=== PATIENT | male | born 1995 | race Caucasian/White ===

== ENCOUNTER 2021-12-19 19:11 | Observation (INO) | payer BC, SELFPAY ==
[2021-12-19] VITALS (22 sets, daily range): BP systolic 110–127; BP diastolic 71–93; PULSE 78–94; RESP 12–25; TEMP 37.1–37.3; O2SAT 97–100
--- NOTE | ~2021-12-19 | CT_ITS ---
EXAMINATION: CT abdomen pelvis w con DATE: 12/19/2021 20:44 INDICATION: RLQ pain TECHNIQUE: Computed tomography (CT) of the abdomen and pelvis was performed with 100 mL Omnipaque-350 intravenous contrast. Automated exposure control and iterative reconstruction technique were employe d. The dose-length product was 288.66 mGy-cm. COMPARISON: None. FINDINGS: Lower thorax: Unremarkable Liver: Normal. Biliary/Gallbladder: Gallbladder is normal. No bile duct dilation. Pancreas: No mass or duct dilation. Spleen: Normal. Adrenals:No mass. Kidneys: No mass or stone. Mild proximal right ureterectasis and hyperemia likely related to the appe ndiceal process. GI tract: No small or large bowel dilation. Dilated appendix with surrounding inflammatory change and hyperemic mucosa. Appendicolith at the neck of the appendix. Mesentery/Peritoneum: No ascites, mass, or free air. Retroperitoneum: No mass. Pelvis: Pelvic organs are within normal limits. Small volume free pelvic fluid, presumed to be reacti ve edema. Soft Tissues: Soft tissues and body wall unremarkable. Bones: No acute osseous finding. IMPRESSION: Acute uncomplicated appendicitis. Reviewed, dictated and finalized at location K.
--- NOTE | 2021-12-19 19:44 | ED.GENADULT ---
HPI - General Adult General Chief complaint: Abdominal Pain Stated complaint: RLQ pain Time Seen by Provider: 12/19/21 19:37 History of Present Illness HPI narrative: 26-year-old male presenting the emergency department for evaluation of right lower quadrant abdominal pain. Patient states the pain did start yesterday and was more central and generalized. Patient states that the pain does feel improved but does feel more focal in his right lower quadrant today. Patient denies any current nausea or vomiting. Patient has no prior surgical history. Related Data Allergies Allergy/AdvReac Type Severity Reaction Status Date / Time No Known Allergies Allergy Mild Verified 12/19/21 19:43 Review of Systems Review of Systems: CONSTITUTIONAL: Denies fever, chills, or sweats. EYES: Denies visual changes, redness, or discharge. ENT: Denies rhinorrhea, congestion, sore throat, or otalgia. CARDIOVASCULAR: Denies chest pain, palpitations, or edema. RESPIRATORY: Denies cough or dyspnea. GASTROINTESTINAL: See HPI GENITOURINARY: Denies dysuria or hematuria. SKIN: Denies rash or itching. MUSCULOSKELETAL: Denies back pain, joint pain, or myalgia. NEUROLOGIC: Denies headache, numbness, or weakness. Exam Narrative: APPEARANCE: Well appearing, no pain, no distress, well-nourished. HEAD: normocephalic, atraumatic. EYES: PERRLA/EOMI, conjunctivae clear. NOSE: Normal no drainage NECK: Supple. No adenopathy, no masses. RESPIRATORY: Airway patent, respirations nonlabored. Clear to auscultation bilaterally, no rales, rhonchi, wheezing. CARDIOVASCULAR: Regular rate and rhythm without murmurs rubs or gallops. ABDOMINAL: Right lower quadrant tenderness to palpation with positive Rovsing sign MUSCULOSKELETAL: Moves all extremities. Strength/ROM intact, No edema, No calf tenderness. NEURO: Alert. Cranial nerves II through XII intact. Grossly intact SKIN: Warm, dry. Normal Color Course Course Emergency Course: Patient CT scan was positive for acute uncomplicated appendicitis. Case was discussed with Dr. Payne with surgery and patient was accepted for admission. Patient was started on Zosyn while in the emergency department. Patient was updated on the results of his work-up and plan for admission. All questions and concerns were addressed. Patient was well-appearing at time of admission. Vital Signs Vital signs: Vital Signs Temperature 98.8 F 12/19/21 19:16 Pulse Rate 91 12/19/21 19:16 Respiratory Rate 16 12/19/21 19:16 Blood Pressure 110/71 12/19/21 19:16 Pulse Oximetry 100 12/19/21 19:16 Oxygen Delivery Room Air 12/19/21 19:16 Temperature 98.8 F 12/19/21 19:16 Pulse Rate 92 12/19/21 22:02 Respiratory Rate 20 12/19/21 22:02 Blood Pressure 117/75 12/19/21 22:02 Pulse Oximetry 100 12/19/21 22:02 Oxygen Delivery Room Air 12/19/21 19:16 Medical Decision Making Vital Signs Vital Signs: Vital Signs Temperature 98.8 F 12/19/21 19:16 Pulse Rate 91 12/19/21 19:16 Respiratory Rate 16 12/19/21 19:16 Blood Pressure 110/71 12/19/21 19:16 Pulse Oximetry 100 12/19/21 19:16 Oxygen Delivery Room Air 12/19/21 19:16 Temperature 98.8 F 12/19/21 19:16 Pulse Rate 92 12/19/21 22:02 Respiratory Rate 20 12/19/21 22:02 Blood Pressure 117/75 12/19/21 22:02 Pulse Oximetry 100 12/19/21 22:02 Oxygen Delivery Room Air 12/19/21 19:16 Lab Data Lab results reviewed: Yes I reviewed the patient's lab results. Result diagrams: 12/19/21 19:31 12/19/21 19:31 Labs: Lab Results 12/19/21 12/19/21 12/19/21 Range/Units 19:31 19:31 19:31 WBC 12.5 H (4.5-10.0) K/mm3 RBC 4.50 L (4.6-6.20) M/mm3 Hgb 13.7 L (14.0-18.0) g/dL Hct 39.4 L (42.0-52.0) % MCV 87.6 (80-100) fl MCH 30.4 (26-34) pg MCHC 34.8 (32-36) g/dl RDW 12.3 (11.5-14.5) % Plt Count 193 (150-375) k/mm3 MPV 9.6 (7.4-10.4) fl Immature Gran
[2021-12-19 19:49] LABS: Basophils Percent Auto 0.2 % (0.2-1.2); Eosinophils Percent Auto 0.1 % (0-4.4); Hematocrit 39.4 % (42.0-52.0); Hemoglobin 13.7 g/dL (14.0-18.0); Immature Granulocyte Absolute 0.04 K/mm3 (0.00-0.031); Immature Granulocyte Percent A 0.3 % (0-0.5); Lymphocytes Absolute Auto 1.96 K/mm3 (0.9-3.2); Lymphocytes Percent Auto 15.7 % (18.3-44.2); Mean Corpuscular HGB Conc 34.8 g/dl (32-36); Mean Corpuscular Hemoglobin 30.4 pg (26-34); Mean Corpuscular Volume 87.6 fl (80-100); Mean Platelet Volume 9.6 fl (7.4-10.4); Monocytes Absolute Auto 0.8 K/mm3 (0.1-0.6); Monocytes Percent Auto 6.3 % (2.6-8.5); Neutrophils Absolute Auto 9.7 K/mm3 (1.3-6.7); Neutrophils Percent Auto 77.4 % (45.5-73.1); Platelet Count Result 193 k/mm3 (150-375); Red Cell Distribution Width 12.3 % (11.5-14.5); White Blood Count 12.5 K/mm3 (4.5-10.0)
[2021-12-19 19:51] LABS: Appearance Urine Clear (Clear); Bilirubin Urine 1+ (Negative); Blood Urine 2+ (Negative); Color Urine Yellow (Yellow); Glucose Urine UA Negative (Negative); Ketones Urine 3+ mg/dL (Negative); Leukocyte Esterase Ur Negative LEU/UL (Negative); Nitrate Urine Negative (Negative); Protein Urine Negative (Negative); Specific Grav Ur >= 1.030 (1.001-1.035); Urobilinogen Urine 0.2 mg/dL (<2.0); pH Urine 5.5 (5.0-9.0)
[2021-12-19] MEDS: SODIUM CHLORIDE 0.9% IV 1,000 ML 999 ML IV CONT ×2 (20:00→21:00)
[2021-12-19 20:01] LABS: Alanine Aminotransferase 18 U/L (6-50); Albumin Level 5.1 g/dL (3.5-5.1); Alkaline Phosphatase 51 U/L (38-126); Anion Gap 12 mmol/L (8-16); Aspartate Amino Transferase 27 U/L (17-59); Bilirubin,Total 0.7 mg/dL (0.2-1.3); Blood Urea Nitrogen 14 mg/dL (9-20); Calcium 9.8 mg/dL (8.4-10.2); Carbon Dioxide 30 mmol/L (22-30); Chloride 97 mmol/L (98-107); Estimated CRCL calculation 101 ml/min; Estimated Glomerular Filt Rate > 60; Glucose 109 mg/dL (65-110); Lipase 106 U/L (23-300); Potassium 3.4 mmol/L (3.4-5.0); Sodium 139 mmol/L (137-145)
[2021-12-19 20:06] LABS: Mucus Urine Heavy /lpf; Squamous Epithelial Cell Urine Rare /hpf (Few); WBC Urine 0-3 /hpf
[2021-12-19 20:18] LABS: Add Urine Microscopic? YES
[2021-12-19] MEDS: SODIUM CHLORIDE 0.9% IV 1,000 ML 125 ML IV CONT (22:29)
[2021-12-19] MEDS: HYDROmorphone HCL INJ (*CRX) 1 MG/ML SYR 0.5 MG IV PUSH (22:29)
--- NOTE | 2021-12-19 23:50 | ADMGEN ---
This patient, Nadeem Cueva, was admitted to Medical Room 251-01. Patient/family oriented to hospital policies and general routines including ID bracelet, bed and alarms, visiting hours, pain management, procedures, bathroom and other care routines, personal items, smoking policy, room service/diet, and visiting hours. Information on how to activate the Rapid Response Team has been discussed. Patient/Family are encouraged to report perceived risks to care and to ask questions if they do not understand what they are told or what they should do.
[2021-12-20] VITALS (15 sets, daily range): BP systolic 103–118; BP diastolic 59–79; PULSE 67–85; RESP 14–20; TEMP 36.2–36.7; O2SAT 98–100; BMI 22.6
[2021-12-20] MEDS: SODIUM CHLORIDE 0.9% IV 1,000 ML 125 ML IV CONT (06:30)
[2021-12-20 07:36] LABS: Basophils Percent Auto 0.2 % (0.2-1.2); Eosinophils Percent Auto 0.4 % (0-4.4); Hematocrit 34.7 % (42.0-52.0); Hemoglobin 11.9 g/dL (14.0-18.0); Immature Granulocyte Absolute 0.03 K/mm3 (0.00-0.031); Immature Granulocyte Percent A 0.3 % (0-0.5); Lymphocytes Absolute Auto 2.08 K/mm3 (0.9-3.2); Lymphocytes Percent Auto 20.8 % (18.3-44.2); Mean Corpuscular HGB Conc 34.3 g/dl (32-36); Mean Corpuscular Hemoglobin 30.4 pg (26-34); Mean Corpuscular Volume 88.7 fl (80-100); Mean Platelet Volume 10.2 fl (7.4-10.4); Monocytes Absolute Auto 0.7 K/mm3 (0.1-0.6); Monocytes Percent Auto 6.7 % (2.6-8.5); Neutrophils Absolute Auto 7.2 K/mm3 (1.3-6.7); Neutrophils Percent Auto 71.6 % (45.5-73.1); Platelet Count Result 172 k/mm3 (150-375); Red Blood Count 3.91 M/mm3 (4.6-6.20); Red Cell Distribution Width 12.5 % (11.5-14.5)
--- NOTE | 2021-12-20 09:09 | WPDHPUPDATE1 ---
History and Physical Update Update Date/Time: 12/20/21 09:09 History and Physical has been reviewed, including an updated exam of the patient. There are NO changes in the patient's condition. Risks, benefits, and alternatives have been discussed and questions answered. Patient agrees to proceed with procedure.
--- NOTE | 2021-12-20 09:10 | PM.IMHP ---
H&P: HPI History of Present Illness Date/Time: 12/20/21 09:10 <Rodney Payne MD - Last Filed: 12/20/21 09:13> Chief Complaint: Abdominal pain <Rodney Payne MD - Last Filed: 12/20/21 09:13> RLQ Abdominal pain <CHE Mattson - Last Filed: 12/20/21 10:33> Narrative: This is a 26-year-old man who presented to the ER last night with complaints of right lower quadrant abdominal pain. His abdominal pain started 2 days ago. He had associated nausea, but no vomiting. No fever or chills. His pain seemed to improve Monday, but was worse again through the night. He was unable to sleep due to the pain. Therefore, he presented to the ER for evaluation. CT scan of the abdomen and pelvis showed acute appendicitis with an appendicolith in the neck of the appendix. No evidence of perforation or abscess. [place] [id number]. Our service was contacted by the ED physician and he was admitted for acute appendicitis. He has been started on IV Zosyn, IV fluids, and made NPO. He is now seen on the medical floor with his mother at the bedside. He reports feeling comfortable this morning when at rest, but pain is aggravated by movement and coughing. He is currently complaining of a headache. He deals with migraines chronically and typically takes [id number] Excedrin to abort his migraines. No previous abdominal surgeries. No other complaints at this time. <CHE Mattson - Last Filed: 12/20/21 10:33> Review of Systems Review of Systems: All systems reviewed & are unremarkable except as noted in HPI and below <CHE Mattson - Last Filed: 12/20/21 10:33> Constitutional: Constitutional: Reports as per HPI, Denies chills, Denies fatigue, Denies fever(s) and Reports headache(s) <CHE Mattson - Last Filed: 12/20/21 10:33> Eyes: Eyes: Reports no additional eye complaints <CHE Mattson - Last Filed: 12/20/21 10:33> ENT: Reports system reviewed and no additional complaints, except as documented and Reports Normal hearing present <Trinh RobledoCHE jameson - Last Filed: 12/20/21 10:33> Cardiovascular: Cardiovascular: Reports no additional cardiovascular complaints, Denies chest pain and Denies leg edema <Trinh RobledoCHE jameson - Last Filed: 12/20/21 10:33> Respiratory: Respiratory: Reports no additional respiratory complaints, Denies cough and Denies dyspnea <Trinh BAnil MeenaCHE jameson - Last Filed: 12/20/21 10:33> Gastrointestinal: Gastrointestinal: Reports as per HPI, Reports no additional gastrointestinal complaints, Reports abdominal pain, Denies melena, Denies bloating, Denies change in bowel habits, Denies diarrhea, Reports nausea and Denies vomiting <Trinh ChelseaAnil MeenaCHE jameson - Last Filed: 12/20/21 10:33> Genitourinary: Genitourinary: Reports no additional male genitourinary complaints, Denies hematuria and Denies dysuria <Trinh Linton MeenaCHE jameson - Last Filed: 12/20/21 10:33> Musculoskeletal: Musculoskeletal: Reports no additional musculoskeletal complaints <Trinh Linton MeenaCHE jameson - Last Filed: 12/20/21 10:33> Integumentary/Breasts: Skin/Breast: Reports system reviewed and no additional complaints, except as docu <Trinh BAnil MeenaCHE jameson - Last Filed: 12/20/21 10:33> Neurologic: Reports system reviewed and no additional complaints, except as documented, Denies dizziness, Denies focal weakness, Denies numbness and Denies tingling <Trinh Linton MeenaCHE jameson - Last Filed: 12/20/21 10:33> PMF Past Medical History Medical History: Medical History No pertinent past medical history <Rodney Payne MD - Last Filed: 12/20/21 09:13> Surgical History Surgical History: Surgical History No pertinent past surgical history <Rodney Payne MD - Last Filed: 12/20/21 09:13> Family History Family History: Family History
[2021-12-20] MEDS: ACETAMINOPHEN 500 MG TABLET 1000 MG PO (10:50)
--- NOTE | 2021-12-20 12:07 | WPDANESEPPF ---
Anes - Initial Pre Proc Eval Procedure: Operation Date: 12/20/21 13:30 Proposed Procedures p Laparoscopic Appendectomy, Possible Open - Rodney Payne MD Date/Time: 12/20/21 12:07 Surgeon: Rodney Payne MD Pre Op Diagnosis: acute appendicitis Patient Data Age: 26 Gender: M Height: 1.8 m Weight: 73.6 kg Last Vital Signs Temp 36.7 C 12/20/21 07:05 Pulse 81 12/20/21 07:05 Resp 20 12/20/21 07:05 BP 104/61 12/20/21 07:05 Pulse Ox 98 12/20/21 08:48 O2 Del Method Room Air 12/20/21 08:48 Allergies Allergy/AdvReac Type Severity Reaction Status Date / Time No Known Allergies Allergy Mild Verified 12/19/21 23:55 Home Medications Medication Instructions Recorded Confirmed Type No Home Medications 12/19/21 12/19/21 History Laboratory Tests 12/19/21 12/19/21 12/19/21 19:31 19:31 19:31 WBC 12.5 K/mm3 H K/mm3 (4.5-10.0) RBC 4.50 M/mm3 L M/mm3 (4.6-6.20) Hgb 13.7 g/dL L g/dL (14.0-18.0) Hct 39.4 % L % (42.0-52.0) MCV 87.6 fl fl (80-100) MCH 30.4 pg pg (26-34) MCHC 34.8 g/dl g/dl (32-36) RDW 12.3 % % (11.5-14.5) Plt Count 193 k/mm3 k/mm3 (150-375) MPV 9.6 fl fl (7.4-10.4) Immature Gran % (Auto) 0.3 % % (0-0.5) Neut % (Auto) 77.4 % H % (45.5-73.1) Lymph % (Auto) 15.7 % L % (18.3-44.2) [place] % (Auto) 6.3 % % (2.6-8.5) Eos % (Auto) 0.1 % % (0-4.4) Baso % (Auto) 0.2 % % (0.2-1.2) Lymph # (Auto) 1.96 K/mm3 K/mm3 (0.9-3.2) [place] # (Auto) 0.8 K/mm3 H K/mm3 (0.1-0.6) Eos # (Auto) 0.0 K/mm3 K/mm3 (0-0.3) Baso # (Auto) 0.0 K/mm3 K/mm3 (0.0-0.1) Abs Immat Gran (auto) 0.04 K/mm3 H K/mm3 (0.00-0.031) Absolute Neuts (auto) 9.7 K/mm3 H K/mm3 (1.3-6.7) Absolute Nucleated RBC 0.0 K/mm3 K/mm3 (0.0-0.012) Nucleated RBC % 0.0 % % (0.0-0.2) Sodium 139 mmol/L mmol/L (137-145) Potassium 3.4 mmol/L mmol/L (3.4-5.0) Chloride 97 mmol/L L mmol/L (98-107) Carbon Dioxide 30 mmol/L mmol/L (22-30) Anion Gap 12 mmol/L mmol/L (8-16) BUN 14 mg/dL mg/dL (9-20) Creatinine 1.00 mg/dL mg/dL (0.7-1.3) Estim Creat Clear Calc 101 ml/min ml/min Estimated GFR > 60 (59 - ) Glucose 109 mg/dL mg/dL (65-110) Calcium 9.8 mg/dL mg/dL (8.4-10.2) Total Bilirubin 0.7 mg/dL mg/dL (0.2-1.3) AST 27 U/L U/L (17-59) ALT 18 U/L U/L (6-50) Alkaline Phosphatase 51 U/L U/L (38-126) Total Protein 8.0 g/dL g/dL (6.3-8.2) Albumin 5.1 g/dL g/dL (3.5-5.1) Lipase 106 U/L U/L (23-300) Urine Color Yellow (Yellow) Urine Appearance Clear (Clear) Urine pH 5.5 (5.0-9.0) Ur Specific [place] >= 1.030 (1.001-1.035) Urine Protein Negative mg/dL mg/dL (Negative) Urine Glucose (UA) Negative mg/dL mg/dL (Negative) Urine Ketones 3+ mg/dL H mg/dL (Negative) Ur Blood (Man) 2+ H (Negative) Urine Nitrate Negative (Negative) Urine Bilirubin 1+ H (Negative) Urine Urobilinogen 0.2 mg/dL mg/dL (<2.0) Leukocyte Esterase Rfl Negative KAMRON/UL KAMRON/UL (Negative) Urine RBC 6-10 /hpf H /hpf (0-2) Urine WBC 0-3 /hpf /hpf Ur Squamous Epith Cells Rare /hpf /hpf (Few) Urine Mucus Heavy /lpf H /lpf 12/20/21 05:06 WBC 10.0 K/mm3 K/mm3 (4.5-10.0) RBC 3.91 M/mm3 L M/mm3 (4.6-6.20) Hgb 11.9 g/dL L g/dL (14.0-18.0) Hct 34.7 % L % (42.0-52.0) MCV 88.7 fl fl (80-100) MCH 30.4 pg pg (26-34) MCHC 34.3 g/dl g/dl (32-36) RDW 12.5 % % (11.5-14.5)
[2021-12-20] MEDS: BUPIVACAINE/EPINEPHRINE 0.25% 50 ML VIAL 30 ML INFILTRATE (13:05)
[2021-12-20] MEDS: LACTATED RINGERS 1,000 ML 30 ML IV CONT (13:47)
--- NOTE | 2021-12-20 14:02 | W.PM.PROC2 ---
Procedure Note - Detailed Date of Procedure 12/20/21 Pre-op Diagnosis acute uncomplicated appendicitis Post-op Diagnosis Same Procedure Performed laparoscopic appendectomy Surgeon Rodney Payne MD [employer] Worker Eleanor ACUÑA. OR [facility] An[facility] General Indications Patient had a workup in the ED showing elevated white count, CT scan consistent with acute uncomplicated appendicitis with an appendicolith. Treatment with either antibiotics or surgery was explained to the patient. She air decision making was completed and patient would like to proceed with a laparoscopic appendectomy. Findings Inflamed enlarged appendix on its distal 2/3. Very small opening to perhaps a sealed tract suggestive of an early indirect inguinal hernia right side. Description of Procedure The patient was seen again in the Holding Room. The risks, benefits, complications, treatment options, and expected outcomes were discussed with the patient and/or family. The possibilities of reaction to medication, pulmonary aspiration, perforation of viscus, bleeding, recurrent infection, finding a normal appendix, the need for additional procedures, failure to diagnose a condition, and creating a complication requiring transfusion or operation were discussed. There was concurrence with the proposed plan and informed consent was obtained. The site of surgery was properly noted/marked. The patient was taken to Operating Room, and a time out was preformed which identified this as the proper patient, and the procedure verified as laparoscopic appendectomy, possible open. The patient was placed in the supine position and general anesthesia was induced, along with placement of an orogastric tube, SCD hose, and a Dash catheter. The abdomen was prepped and draped in a sterile fashion. A 5 mm transverse umbilical incision was made directly over the very small umbilical hernia that I had noted on exam. After injecting local anesthetic using at some forceps we carefully elevated the skin superiorly inferiorly after making a small less than 1 cm transverse incision directly over the hernia. Entered of what appeared to be a small hernia sac and some preperitoneal fat was excised from the area I probed with a hemostat and it appeared as if we were on possibly within the hernia sac. I therefore placed a hemostat on visible fascia superiorly and I placed 1 towel clip on the skin inferiorly. We then used the 5 mm port to carefully twist into the abdomen visualizing with the 0 degree 5 mm laparoscoped. CO2 gas was then connected to the port and the abdomen insufflated and we were definitely within the abdomen. Once the abdomen was insufflated to 15 mmHg pressure the pneumoperitoneum was then established to steady pressure of 14 mm Hg. A 12 mm laparoscopic port was placed through a transverse suprapubic incision. An additional 5 mm cannula was then placed in the left lower quadrant of the abdomen at a level half way between the umbilicus and pubic symphysis under direct vision. A careful evaluation of the entire abdomen was carried out. The patient was placed in Trendelenburg and left lateral decubitus position. The small intestines were retracted in the cephalad and left lateral direction away from the pelvis and right lower quadrant. The patient was found to have an enlarged and inflamed appendix that was extending into the right side of the pelvis at the level of the pelvic brim. There was no evidence of perforation. The appendix was carefully dissected. Once it was free a 45 mm ethicon endogastroentestinal stapler with a vascular load was placed across the mesoappendix. This was fired and hemostasis was checked along the staple line and appeared to be adequate. For this patient, this divided the entire mesoappendix and we were able to proceed immediately to stapling off the appendix at it's junction with the cecum. The appendix was then divided at its base using the same 45 mm stapler with
--- NOTE | 2021-12-20 17:08 | PM.DS ---
DS: Admitting Diagnosis Discharge Date 12/20/2021 Admitting Diagnosis acute uncomplicated appendicitis DS: Discharge Diagnosis Discharge Diagnosis (1) Acute appendicitis, uncomplicated: Code(s): K35.80 - Unspecified acute appendicitis Status: Acute Assessment and Plan: This was the main reason for the patient's admission. He was started on antibiotics and seen the morning following admission. Because he had an appendicolith by CT was recommended that he have surgical intervention rather than IV antibiotic and out of the attic course for treatment of his appendicitis. He did well through surgery and is discharged with no nausea following the surgery. He is tolerating liquids upon discharge. He will follow up in the office in 2 weeks. (2) Umbilical hernia without obstruction and without gangrene: Code(s): K42.9 - Umbilical hernia without obstruction or gangrene Status: Acute Assessment and Plan: this was repaired at the time of surgery. It was quite small in needed only 2 sutures. DS: Summary Hospital Course Reason for hospitalization: acute uncomplicated appendicitis Hospital Course: patient was admitted because of his appendicitis. He was started on IV antibiotics. Because he had an appendicolith by CT was recommended that he have surgical intervention rather than IV antibiotic and out of the attic course for treatment of his appendicitis. He did well through surgery and is discharged with no nausea following the surgery. He is tolerating liquids upon discharge. He will follow up in the office in 2 weeks. Status at Discharge Cognitive/behavioral status at discharge: Back to baseline Functional status at discharge: independent ambulation Time Spent with Patient Time attestation: Total time spent providing and/or coordinating discharge services: Time spent: Less than 30 minutes Exam Const: General: cooperative, comfortable, alert and awake Orientation/consciousness: patient oriented x3 HENMT: Head: normal to inspection Mouth: Yes moist mucous membranes Eyes: Sclera: sclerae normal Pupils: Equal, round and reactive pupils present Neck: Neck: normal visual inspection and no JVD Chest: Chest palpation & inspection: normal inspection of the chest Resp: Effort & Inspection: normal respiratory effort Auscultation: clear to auscultation bilaterally Cardio: Jugular venous distension: no JVD Rate: regular rate GI: GI Palp: Yes abdominal tenderness ( near incisions) and No Hernia present Auscultation: normal bowel sounds Rectal Exam: deferred Other: incisions with clear surgical glue in place Neuro: General: patient oriented x3 Cranial nerves: Yes Equal, round and reactive pupils present DS: Data Data Completed and Pending Pending studies at discharge: Pending at discharge 12/20/21 13:08 Surgical [PTH] Routine Labs on day of discharge: Labs from last 24 hours 12/20/21 12/19/21 12/19/21 05:06 19:31 19:31 WBC 10.0 12.5 H RBC 3.91 L 4.50 L Hgb 11.9 L 13.7 L Hct 34.7 L 39.4 L MCV 88.7 87.6 MCH 30.4 30.4 MCHC 34.3 34.8 RDW 12.5 12.3 Plt Count 172 193 MPV 10.2 9.6 Immature Gran % (Auto) 0.3 0.3 Neut % (Auto) 71.6 77.4 H Lymph % (Auto) 20.8 15.7 L Sac % (Auto) 6.7 6.3 Eos % (Auto) 0.4 0.1 Baso % (Auto) 0.2 0.2 Lymph # (Auto) 2.08 1.96 Sac # (Auto) 0.7 H 0.8 H Eos # (Auto) 0.0 0.0 Baso # (Auto) 0.0 0.0 Abs Immat Gran (auto) 0.03 0.04 H Absolute Neuts (auto) 7.2 H 9.7 H Absolute Nucleated RBC 0.0 0.0 Nucleated RBC % 0.0 0.0 Sodium 139 Potassium 3.4 Chloride 97 L Carbon Dioxide 30 Anion Gap 12 BUN 14 Creatinine 1.00 Estim Creat Clear Calc 101 Estimated GFR > 60 Glucose 109 Calcium 9.8 Total Bilirubin 0.7 AST 27 ALT 18 Alkaline Phosphatase 51 Total Protein 8.0 Albumin 5.1 Lipase 106 Urine Color Urine Ap
== END 2021-12-20 17:42 | disposition home or self-care (01) ==
LOC: ANHED 22:34 → ANH2MED 23:16
PROVIDERS: Physician Assistant; Admitting Provider Surgery; Emergency Provider Emergency Medicine; Visit Provider Surgery
PROC: 0DTJ4ZZ Resection of Appendix, Percutaneous Endoscopic Approach (ICD-10-PCS; CPT 44970; principal; 2021-12-20 13:30)
DX: K35.80 Unspecified acute appendicitis (principal); K42.9 Umbilical hernia without obstruction or gangrene
CPT/HCPCS: 44970; 36415; 74177; 80053; 81001; 83690; 85025; 88304; 96361; 96365; 96366; 96375; 99285; A9270; G0378; J0330; J1100; J1170; J2250; J2405; J2543; J2704; J2710; J3010; J7030; J7120; Q9967